=== PATIENT | male | born 1935 ===

== ENCOUNTER 2016-08-22 20:50 | Emergency (ER) | payer MEDICARE, OTHER ==
[2016-08-22 21:56] LABS: ABSOLUTE NEUTROPHIL COUNT 6.7 K/mm3 (1.8-7.7); BASO # 0.1 K/mm3 (0.0-0.2); BASO % 0.8 % (0.2-1.0); EOS # 0.4 (0.0-0.5); EOS % 4.3 % (0.9-2.9); HEMATOCRIT 34.3 % (32.0-52.0); HEMOGLOBIN 11.6 gm/l (14.0-18.0); IMM NEUT% 0.3 % (0-1); LYMPH % 19.3 % (15-45); MEAN CELL VOLUME 88.6 fl (80.0-94.0); MEAN CORPUSCULAR HGB CONC 33.8 g/dl (33.0-37.0); MEAN PLATELET VOLUME 9.2 fl (7.4-10.4); MONO # 0.9 (0.0-0.8); MONO % 9.3 % (4-12); PLATELET COUNT 383 K/mm3 (130-400); RED CELL DISTRIBUTION WIDTH 11.9 % (11.5-14.5)
[2016-08-22] MEDS ORDERED: SODIUM CHLORIDE 0.9% 500 ML ONE (21:58)
[2016-08-22] MEDS ORDERED: PANTOPRAZOLE SODIUM 40 MG VIAL IV ONE (21:58)
[2016-08-22] MEDS ORDERED: MAALOX/LIDO2%VISC/SIMETHICONE 40 ML BOT ONE (21:58)
[2016-08-22] MEDS ORDERED: ONDANSETRON 4 MG/2ML 2 ML VIAL ONE (21:58)
[2016-08-22 22:13] LABS: ALB/GLOB RATIO 1.1 (>1.0); ALBUMIN 3.8 gm/dL (3.5-5.7); CALCIUM 9.3 mg/dL (8.6-10.3)
[2016-08-22] MEDS ORDERED: KETOROLAC TROMETHAMINE 15 MG/ML VIAL ONE (22:40)
[2016-08-23] MEDS ORDERED: MAALOX/LIDO2%VISC/SIMETHICONE 40 ML BOT ONE (00:03)
== END 2016-08-23 00:15 | disposition home or self-care (01) ==
LOC: ED 20:50
DX: M94.0 Chondrocostal junction syndrome [Tietze] (principal); R10.9 Unspecified abdominal pain; I10 Essential (primary) hypertension
CPT/HCPCS: 83690; 85025; 80053; 84484; 96375 ×2; 99283 ×2; 96374; 96361 ×2; 93005; A9270 ×2; C9113; J1885; J2405; J7040